=== PATIENT | female | born 1960 | race Caucasian/White ===

== ENCOUNTER 2020-09-14 19:43 | Emergency (ER) | payer MEDICAID, SELFPAY ==
[2020-09-14 19:54] VITALS: BP 174/78; PULSE 58; RESP 18; TEMP 36.9; O2SAT 99; BMI 35.2
--- NOTE | 2020-09-14 20:29 | ED_ITS ---
HPI - General Adult General Chief complaint: General Medical Stated complaint: tick bite Source: patient Mode of arrival: ambulatory Limitations: language barrier History of Present Illness HPI narrative: 60-year-old female presents with an imbedded tick to her right axilla. Patient has no other complaints at this time. Onset (ago): hour(s) Location: right and upper extremity Severity: mild Related Data Previous Rx's Medication Instructions Recorded doxycycline monohydrate 100 mg PO BID 14 Days #28 cap 09/14/20 Allergies Allergy/AdvReac Type Severity Reaction Status Date / Time No Known Allergies Allergy Verified 09/14/20 21:01 Review of Systems Review of Systems: Constitutional: No Fever, No Chills ENT/Mouth: No Ear Pain, No Hoarseness, No sore throat Eyes: No Eye Pain, No Swelling, No Redness, No Foreign Body Cardiovascular: No Chest Pain, No SOB Respiratory: No Cough, No Dyspnea Gastrointestinal: No Nausea, No Vomiting, No Diarrhea, No abdominal Pain Genitourinary: No Dysuria, No Hematuria Musculoskeletal: No joint pain, No Myalgias, No Joint Swelling Skin: Positive insect imbedded to right axilla, No Skin lacerations, No rash Neuro: No Weakness, No Numbness, No Paresthesias, No Loss of Consciousness, No Dizziness, No Headache Psych: No Anxiety/Panic, No Depression Heme/Lymph: no easy bruising, no Lymphadenopathy Endocrine: No Polyuria, No Polydipsia Yes all other systems are reviewed and are negative [facility] Past Medical History Attestation statement: The following information was validated with the patient. Source: old records reviewed Medical History HLD (hyperlipidemia) HTN (hypertension) Surgical History History of salpingo-oophorectomy Social History Social History Advance Directives: No Advance Directives Information Provided: No Physical Exam Vital Signs: Vital Signs: Last Vital Signs Temp 98.5 F 09/14/20 19:54 Pulse 58 09/14/20 19:54 Resp 18 09/14/20 19:54 BP 174/78 H 09/14/20 19:54 Pulse Ox 99 09/14/20 19:54 Body Mass Index 35.2 Appearance: Alert. Oriented X3. No acute distress. Eyes: Pupils equal, round and reactive to light. ENT: Pharynx normal. Neck: Normal inspection. Neck supple. CVS: Normal heart rate and rhythm. Pulses normal. Respiratory: No respiratory distress. Breath sounds normal. Abdomen: Soft and nontender. Skin: Positive imbedded tick parts to the right axilla with bull's-eye rash, Skin warm and dry. Normal skin color. Normal skin turgor. Extremities: No lower extremity edema. Neuro: No motor deficit. No sensory deficit. Course Course Course Narrative: 60-year-old female presents with imbedded tick to the right axilla. Will plan to extract, 1 mL of lidocaine injected to the surrounding area, 10 blade utilized to cut a 2 mm superficial incision to remove tick legs and head. Will treat with doxycycline as patient does have a bull's-eye rash. Patient tolerated procedure well. No complications or bleeding from the site. manufacturing director utilized for all correspondence, Google translate utilized for discharge instructions. Medical Decision Making MDM Narrative Medical decision making narrative: Imbedded tick Medical Records Medical records reviewed: Yes I reviewed the patient's medical records. Discharge Plan Discharge Clinical Impression: Tick bite of axillary region, Tick bite with subsequent removal of tick Patient Disposition: Home, Self-Care Instructions: Lyme Disease (ED), Tick Bite (ED) Additional Instructions: Te evaluaron por picadura de garrapata. Quitamos las porciones sobrantes de jung garrapata de la axila derecha. Tienes jung erupci?n en el holli de schmidt con sistente con la enfermedad de Lyme. Por favor tome doxiciclina 100 mg cada 12 horas maykel los pr?ximos 14 d?as. Por favor, no te expongas a [place]. Debes usar jung camisa de manga larga, pantalones de manga larga y un sombrero si sales al aire nicole bajo el leeroy o tendr?s jung erupci?n cut?marques significativa. Por favor, kevin un seguimiento con el m?dico de atenci?n primaria dentro de la pr?xima semana. Chrissy por elegir carleen departamento de emergencias para mensah evaluaci?n. Por favor, kevin un seguimiento con el m?dico de atenci?n primaria seg?n sea necesario. Regrese al servicio de emergencias para cualquier s?ntoma nuevo, preocupante o que empeore. You were evaluated for tick bite. We removed the leftover portions of a tick from your right armpit. You do have a bull's-eye rash consistent with Lyme disease. Please take doxycycline 100 mg every 12 hours for the next 14 days. Please do not expose yourself to [place]. You must wear a long sleeve shirt, long-sleeved pants, and a hat if you go outside in the sunshine or You will have a significant skin rash. Please follow-up with primary care physician within the next week. Thank you for choosing this emergency department for evaluation. Please follow-up with primary care physician as needed. Return to the emergency department for any new, concerning, or worsening symptoms. Prescriptions: New doxycycline monohydrate 100 mg capsule 100 mg PO BID 14 Days Qty: 28 RF: 0 Interventions: ED Discharge Assessment Last Done: 09/14/20 21:51 Discharge Date/Time: 09/14/20 21:57
[2020-09-14] MEDS: Lidocaine HCl 2 % MPF 5 ML VIAL SUBCUT (21:19)
== END 2020-09-14 21:57 | disposition home or self-care (01) ==
PROVIDERS: Emergency Provider Internal Medicine
DX: S40.861A Insect bite (nonvenomous) of right upper arm, initial encounter (principal); W57.XXXA Bitten or stung by nonvenomous insect and other nonvenomous arthropods, initial encounter; M79.5 Residual foreign body in soft tissue; Y93.9 Activity, unspecified; Y92.017 Garden or yard in single-family (private) house as the place of occurrence of the external cause; Y99.9 Unspecified external cause status
CPT/HCPCS: 10120; 99283; 99284

== ENCOUNTER 2021-05-06 12:23 | Outpatient (REF) | payer MEDICAID, SELFPAY | END 2021-05-06 12:24 | disposition home or self-care (01) | LOC: HO.LAB 12:23 | PROVIDERS: Visit Provider Internal Medicine | DX: Z20.822 Contact with and (suspected) exposure to COVID-19 (principal) | CPT/HCPCS: C9803; U0003; U0005 ==

== ENCOUNTER 2021-08-14 17:45 | Emergency (ER) | payer MEDICAID, SELFPAY ==
--- NOTE | ~2021-08-14 | CT_ITS ---
EXAMINATION: CT HEAD WITHOUT CONTRAST CLINICAL INFORMATION: Head injury. COMPARISON: None. TECHNIQUE: Contiguous axial imaging was performed from the skull base to vertex without intravenous administration of contrast. Coronal and sagittal reformatted images are performed at the CT scanner. [This CT examination was performed using dose optimization techniques as appropriate, variously including the following: *Automated exposure control *Adjustment of mA and/or kV according to patient size (this includes techniques or standardized protocols for targeted exams where dose is matched to indication/reason for exam; i.e. extremities or head) *Use of iterative reconstruction technique] DLP: 752 mGy-cm. FINDINGS: There is no evidence of acute intracranial hemorrhage or territorial infarction. No abnormal mass-effect or midline shift is seen. [place] to white matter differentiation is well preserved. No extra-axial fluid collections are identified. The ventricles are normal in size. There is no abnormal attenuation within the brain parenchyma. There is no osseous abnormality. The mastoid air cells and visualized portions of the paranasal sinuses are well-aerated. CT/CT head/brain wo con IMPRESSION: No acute intracranial pathology.
--- NOTE | ~2021-08-14 | XR_ITS ---
EXAMINATION: XR RIBS, LEFT CLINICAL INFORMATION: Fall. Bruising. Pain. COMPARISON: None TECHNIQUE: Frontal view of chest. 3 views of the left ribs were obtained. FINDINGS: Lungs are clear. No consolidation, pneumothorax, or pleural effusion. The cardiomediastinal silhouette and pulmonary vasculature are normal. Osseous structures are unremarkable. Ribs are intact. No fractures are identified. XR/XR ribs LT min 3V w CXR1V IMPRESSION: Unremarkable examination.
[2021-08-14 18:14] VITALS: BP 150/61; PULSE 58; RESP 18; TEMP 36.6; O2SAT 98; BMI 30.9
--- NOTE | 2021-08-14 19:07 | ED_ITS ---
HPI - Fall General Chief Complaint: Wound/Laceration Stated Complaint: fall/laceration Time Seen by Provider: 08/14/21 19:01 Source: patient Mode of arrival: ambulatory Limitations: language barrier (Iraqi-speaking, medical administrative technician utilized) History of Present Illness HPI Narrative: Patient is a 61-year-old female with a past medical history of hypertension, hyperlipidemia, hypothyroidism, presenting to the emergency department after a mechanical fall. She reports that while she was walking down stairs from her house to outdoor she is uncertain what happened but her legs just gave out, and she fell forward striking her head on to a kira metal object and sustained a laceration. She denies loss of consciousness, this was an unwitnessed fall, she was able to get up and ambulate on her own afterwards, denies anticoagulant usage. Denies neck pain. Denies precipitating dizziness or lightheadedness. D enies vision changes. Denies headache. Denies numbness or tingling of the extremities. Denies bladder bowel dysfunction. She sustained an abrasion to her left knee which is mildly uncomfortable but she has been able to walk and bear weight on the leg without any difficulty and has full range of motion. Denies chest pain, palpitations, shortness of breath, difficulty breathing, nausea, vomiting, abdominal pain. Related Data Previous Rx's Medication Instructions Recorded doxycycline monohydrate 100 mg 100 mg PO BID 14 Days #28 cap 09/14/20 capsule cephalexin 500 mg capsule 500 mg PO QID 5 Days #20 cap 08/15/21 Allergies Allergy/AdvReac Type Severity Reaction Status Date / Time No Known Allergies Allergy Verified 09/14/20 21:01 Review of Systems Review of Systems: Constitutional: No weight loss, fever, chills, weakness or fatigue. HEENT: No vision changes. No hearing loss. No sore throat. Skin: Left knee abrasion, laceration to forehead. No rash or itching. Cardiovascular: No chest pain, chest pressure or chest discomfort. No palpitations or pedal edema. Respiratory: No shortness of breath, cough or sputum production. Gastrointestinal: No anorexia, nausea, vomiting or diarrhea. No abdominal pain or blood in stool. Genitourinary: No burning micturition. No urinary frequency or incontinence. Neurologic: No headache, dizziness, syncope, unilateral weakness, ataxia, numbness or tingling in the extremities. No change in bowel or bladder control. Musculoskeletal: No muscle pain, back pain, joint pain or stiffness. Hematologic: No bleeding or bruising. Lymphatics: No enlarged lymph nodes. Psychiatric:No depression or anxiety. Endocrine: No polyuria or polydipsia. [facility] Past Medical History Attestation statement: The following information was validated with the patient. Source: old records reviewed Medical History HLD (hyperlipidemia) HTN (hypertension) Surgical History History of salpingo-oophorectomy Social History Social History Advance Directives: No Patient : No Physical Exam Vital Signs: Vital Signs: Last Vital Signs Temp 98.2 F 08/14/21 23:23 Pulse 74 08/14/21 23:23 Resp 16 08/14/21 23:23 BP 140/64 H 08/14/21 23:23 Pulse Ox 98 08/14/21 23:23 BMI result Body Mass Index 30.9 Vital signs have been reviewed and appeared to be correct. Blood pressure elevated 150/61.? Heart rate normal.? Respiration rate normal. Temperature normal.? Oxygen saturation normal. Appearance: Alert.?Oriented to person, place and time. No acute distress.?Normal affect. Eyes: Pupils equal, round and reactive to light.? ENT: Pharynx normal.?? Neck: Normal inspection.? Neck supple.??No palpable midline cervical tenderness, step-off, deformity. CVS: Heart sounds normal. Normal heart rate and rhythm.? Pulses normal.?? Respiratory: No respiratory distress.? Lung sounds clear to auscultation bilaterally?? Abdomen: Soft and non-tender. Normoactive bowel sounds. No pulsatile mass.?? Skin: Abrasion to left knee, 2cm linear laceration to forehead, bruising with abrasion and tenderness to anterior chest, no palpable deformity Skin warm and dry.? Normal skin color.? Normal skin turgor.?? Extremities: No lower extremity edema.? No calf ttp. Full AROM to left knee, palpable 2+ DP/PT pulse. Neuro: Moves all extremities spontaneously. Sensation intact bilaterally. CN II- XII intact. No focal neuro deficits. Ambulates with normal steady gait. Course Course Course Narrative: Patient is a 61-year-old female who is being evaluated after a fall. The exact cause of her fall is unknown, and she did strike her head however, will obtain a CT of the head to evaluate for ICH/SAH/infarct. Basic labs including CBC and BMP to be obtained in addition to troponin and EKG to exclude ischemia/ACS. Plan to update tetanus, laceration to forehead will require suturing. Tylenol for pain. Abrasion to left knee without significant drainage, no active bleeding, no surrounding erythema or swelling, no effusion is present, no obvious deformity or pain, therefore will defer x-ray imaging at this time. Left anterior chest with bruising and abrasions, tenderness with palpation, will obtain x-ray to exclude rib fracture. Disposition pending results Reevaluation(s) Reevaluation #1: CBC is overall unremarkable, BMP is normal. Troponin 4.4, EKG reveals sinus bradycardia, EKG reveals flat T-waves in I and inversion in aVL, no prior EKGs available for comparison, will obtain repeat delta troponin. XR rib and chest are normal, no acute fracture pneumothorax. Time: 21:32 Reevaluation #2: Head CT reveals no acute intracranial pathology. Laceration repair with sutures. Discussed indication for improvement hemostasis of wound and healing time. Patient acknowledged understanding. Wound with sterile saline irrigation draped in usual fashion with the use of Betadine. Closure with 3 simple intermittent sutures 5-0 nylon. Patient tolerated well, no complications. Discussed reasons to return including fever or chills, erythema, swelling, pain, purulence or odor from the wound. Advised to return for suture removal in 7 days. Time: 23:07 Reevaluation #3: Repeat delta troponin <3.5, HEART score 2, no active chest pain and palpitations, shortness breath, difficulty breathing, unlikely to be ACS. Patient reports that she had an EKG after her hysterectomy about 5-6 years ago which she said was ?abnormal? but is unaware specific details. She is well appearing, has remained alert and oriented, ambulatory with steady gait. Patient to be discharged home, discussed all findings, questions answered, patient agrees with plan of care. Time: 00:18 Procedures Laceration Laceration 1: Site: face Size (cm): 3 Description: linear Depth: simple, single layer Local Anesthetic: lidocaine 1% Amount of anesthesia used (mL): 5 Pre-repair: irrigated extensively Skin layer closed with: nylon Size (cm): 5-0 Number of sutures: 3 Technique: simple, interrupted MDM - Fall Medical Records Attestation: I reviewed the patient's medical records. Lab Data Attestation: I reviewed the patient's lab results. Result diagrams: 08/14/21 19:53 08/14/21 19:53 Labs: Lab Results 08/14/21 08/14/21 08/14/21 Range/Units 19:53 19:53 19:53 WBC 7.2 (4.8-10.8) X10*3/uL RBC 4.16 L (4.20-5.50) X10*6/uL Hgb 12.3 (12.0-16.0) g/dl Hct 37.4 (37.0-47.0) % MCV 89.9 (80.0-98.0) fL MCH 29.6 (27.0-33.0) pg MCHC 32.9 (31.0-35.0) g/dl RDW 13.2 (11.0-16.0) % Plt Count 179 (160-400) X10*3/uL MPV 10.8 (9.4-12.3) fL Immature Gran % (Auto) 0.3 (0.0-0.4) % Neut % (Auto) 63.9 (45-73) % Lymph % (Auto) 25.6 (20-40) % [place] % (Auto) 7.0 (2-11) % Eos % (Auto) 2.5 (0-4) % Baso % (Auto) 0.7 (0-2) % Lymph # (Auto) 1.8 (1.2-4.9) X10*3/uL [place] # (Auto) 0.5 (0.1-1.2) X10*3/uL Eos # (Auto) 0.2 (0.0-0.4) X10*3/uL Baso # (Auto) 0.1 (0.0-0.2) X10*3/uL Abs Immat Gran (auto) 0.02 (0.00-0.03) X10*3/uL Absolute Neuts (auto) 4.6 (2.0-8.3) x10*3/uL Absolute Nucleated RBC 0.000 (0.0-0.012) X10*3/uL Nucleated RBC % (auto) 0.0 (0.0-0.2) /100WBC Sodium 140 (135-145) mmol/L Potassium 4.5 (3.3-5.1) mmol/L Chloride 106 (96-108) mmol/L Carbon Dioxide 26 (22-29) mmol/L Anion Gap 13 (12-20) BUN 13 (9-16) mg/dL Creatinine 0.73 (0.5-1.4) mg/dL Estim Creat Clear Calc 84.7 Estimated GFR > 60 Random Glucose 114 (60-115) mg/dL Calcium 9.8 (8.4-10.2) mg/dL Magnesium 2.4 (1.6-2.6) mg/dL Troponin I High Sens 4.4 (<3.5-17.0) ng/L 08/14/21 Range/Units 23:29 WBC (4.8-10.8) X10*3/uL RBC (4.20-5.50) X10*6/uL Hgb (12.0-16.0) g/dl Hct (37.0-47.0) % MCV (80.0-98.0) fL MCH (27.0-33.0) pg MCHC (31.0-35.0) g/dl RDW (11.0-16.0) % Plt Count (160-400) X10*3/uL MPV (9.4-12.3) fL Immature Gran % (Auto) (0.0-0.4) % Neut % (Auto) (45-73) % Lymph % (Auto) (20-40) % [place] % (Auto) (2-11) % Eos % (Auto) (0-4) % Baso % (Auto) (0-2) % Lymph # (Auto) (1.2-4.9) X10*3/uL [place] # (Auto) (0.1-1.2) X10*3/uL Eos # (Auto) (0.0-0.4) X10*3/uL Baso # (Auto) (0.0-0.2) X10*3/uL Abs Immat Gran (auto) (0.00-0.03) X10*3/uL Absolute Neuts (auto) (2.0-8.3) x10*3/uL Absolute Nucleated RBC (0.0-0.012) X10*3/uL Nucleated RBC % (auto) (0.0-0.2) /100WBC Sodium (135-145) mmol/L Potassium (3.3-5.1) mmol/L Chloride (96-108) mmol/L Carbon Dioxide (22-29) mmol/L Anion Gap (12-20) BUN (9-16) mg/dL Creatinine (0.5-1.4) mg/dL Estim Creat Clear Calc Estimated GFR Random Glucose (60-115) mg/dL Calcium (8.4-10.2) mg/dL Magnesium (1.6-2.6) mg/dL Troponin I High Sens < 3.5 (<3.5-17.0) ng/L Imaging Data Chest x-ray: Radiologist's impression: XR/XR ribs LT min 3V w CXR1V IMPRESSION: Unremarkable examination. ECG Data Attestation: I personally reviewed and interpreted this ECG as follows: ECG interpretation date: 08/14/21 ECG interpretation time: 21:33 Prior ECG tracings: not available for review Interpretation: Rate: 58 Rhythm:? Sinus bradycardia [place]:? Normal Normal P waves.? Normal XENIA.?? Normal QRS complex.?? ST T wave :??No ST elevation, no ST depression, T-wave flat in lead I, inversion in aVL qTC: 445 prior studies:?none available The study has been interpreted contemporaneously by me. Discharge Plan Discharge Clinical Impression: Laceration, Fall, Abnormal ECG Patient Disposition: Home, Self-Care Instructions: Laceration (ED) Additional Instructions: Please take complete course of antibiotic, Keflex, for 5 days. Your sutures will need to be removed in 7 days, you may contact your primary care provider to schedule a follow-up appointment or return to the emergency department for removal. Please return to the emergency department for re-evaluation if you develop fevers, chills, redness, swelling, drainage, or any new or worsening s ymptoms or concerns. As we discussed, there were some abnormal EKG findings, you should discuss this with your primary care provider, we repeated your blood work while you were in the emergency department in found these changes not to be related to a current heart attack. Prescriptions: New cephalexin 500 mg capsule 500 mg PO QID 5 Days Qty: 20 0RF No Action doxycycline monohydrate 100 mg capsule 100 mg PO BID 14 Days Qty: 28 0RF Interventions: ED Discharge Assessment Last Done: 08/15/21 01:40 Discharge Date/Time: 08/15/21 01:43 Print Language: Iraqi
[2021-08-14 19:11] VITALS: BP 168/79; PULSE 59; RESP 16; TEMP 36.8; O2SAT 98
--- NOTE | 2021-08-14 19:28 | ECG_ITS ---
Test Reason : FALL Blood Pressure : / mmHG Vent. Rate : 058 BPM Atrial Rate : 058 BPM P-R Int : 160 ms QRS Dur : 086 ms QT Int : 454 ms P-R-T Axes : 015 024 072 degrees QTc Int : 445 ms Sinus bradycardia Nonspecific ST and T wave abnormality Abnormal ECG No previous ECGs available Referred By: Connie Perez Electronically Signed By:HEATHER CASTANEDA
[2021-08-14] MEDS: Diphth,Pertus(ACell),Tet Adult 0.5 ML SYRINGE IM (19:43)
[2021-08-14] MEDS: Lidocaine 4 % Cream KIT 1 APPL TOPICAL (19:43)
[2021-08-14] MEDS: Bacitracin Oint 0.9 GM PACKET 1 APPL TOPICAL (19:44)
[2021-08-14] MEDS: Acetaminophen 325 MG TABLET 975 MG PO (19:44)
[2021-08-14] MEDS: Lidocaine HCl 1 % 20 ML VIAL SUBCUT (19:44)
[2021-08-14 19:59] LABS: MANUAL DIFF FLAG NO
[2021-08-14 20:00] LABS: Basophils Absolute Auto 0.1 X10*3/uL (0.0-0.2); Basophils Percent Auto 0.7 % (0-2); Eosinophils Absolute Auto 0.2 X10*3/uL (0.0-0.4); Eosinophils Percent Auto 2.5 % (0-4); Hematocrit 37.4 % (37.0-47.0); Hemoglobin 12.3 g/dl (12.0-16.0); Imm Gran Abs Auto 0.02 X10*3/uL (0.00-0.03); Imm Gran Pct Auto 0.3 % (0.0-0.4); Lymphocytes Absolute Auto 1.8 X10*3/uL (1.2-4.9); Lymphocytes Percent Auto 25.6 % (20-40); Mean Corpuscular HGB Conc 32.9 g/dl (31.0-35.0); Mean Corpuscular Hemoglobin 29.6 pg (27.0-33.0); Mean Corpuscular Volume 89.9 fL (80.0-98.0); Mean Platelet Volume 10.8 fL (9.4-12.3); Monocytes Absolute Auto 0.5 X10*3/uL (0.1-1.2); Neutrophils Absolute Auto 4.6 x10*3/uL (2.0-8.3); Neutrophils Percent Auto 63.9 % (45-73); Platelet Count 179 X10*3/uL (160-400); Red Blood Count 4.16 X10*6/uL (4.20-5.50); Red Cell Distribution Width 13.2 % (11.0-16.0); White Blood Count 7.2 X10*3/uL (4.8-10.8)
[2021-08-14 20:16] LABS: Anion Gap 13 (12-20); Blood Urea Nitrogen 13 mg/dL (9-16); Calcium 9.8 mg/dL (8.4-10.2); Carbon Dioxide 26 mmol/L (22-29); Chloride 106 mmol/L (96-108); Creatinine Clr Calc Pharmacy 84.7; Estimated Glomerular Filt Rate > 60; Glucose Random 114 mg/dL (60-115); Magnesium 2.4 mg/dL (1.6-2.6); Potassium 4.5 mmol/L (3.3-5.1); Sodium 140 mmol/L (135-145)
[2021-08-14 20:19] LABS: Troponin-I High Sensitivity 4.4 ng/L (<3.5-17.0)
[2021-08-14 23:23] VITALS: BP 140/64; PULSE 74; RESP 16; TEMP 36.8; O2SAT 98
[2021-08-15] LABS: Troponin-I High Sensitivity < 3.5 ng/L (<3.5-17.0)
== END 2021-08-15 01:43 | disposition home or self-care (01) ==
PROVIDERS: Nurse Practitioner Family; Emergency Provider Emergency Medicine
DX: S01.81XA Laceration without foreign body of other part of head, initial encounter (principal); S80.212A Abrasion, left knee, initial encounter; S20.319A Abrasion of unspecified front wall of thorax, initial encounter; S20.219A Contusion of unspecified front wall of thorax, initial encounter; W10.8XXA Fall (on) (from) other stairs and steps, initial encounter; R00.1 Bradycardia, unspecified; Y93.89 Activity, other specified; Y92.018 Other place in single-family (private) house as the place of occurrence of the external cause; Y99.9 Unspecified external cause status
CPT/HCPCS: 12013; 36415; 70450; 71101; 80048; 83735; 84484; 85025; 90471; 90715; 93005; 99284

== ENCOUNTER 2021-08-20 18:21 | Emergency (ER) | payer MEDICAID, SELFPAY ==
[2021-08-20 18:45] VITALS: BP 153/71; PULSE 54; RESP 18; TEMP 37.1; O2SAT 99; BMI 28.8
--- NOTE | 2021-08-20 18:50 | ED_ITS ---
HPI - General Adult General Chief complaint: General Medical Stated complaint: Suture removal Time Seen by Provider: 08/20/21 18:22 Source: patient Mode of arrival: ambulatory Limitations: no limitations History of Present Illness HPI narrative: 61-year-old female presents for suture removal from forehead. Onset (ago): week(s) (1) Location: face Radiation: non-radiation Severity: mild Relieving factors: none Exacerbating factors: none Associated symptoms: denies other symptoms Related Data Previous Rx's Medication Instructions Recorded doxycycline monohydrate 100 mg 100 mg PO BID 14 Days #28 cap 09/14/20 capsule cephalexin 500 mg capsule 500 mg PO QID 5 Days #20 cap 08/15/21 Allergies Allergy/AdvReac Type Severity Reaction Status Date / Time No Known Allergies Allergy Verified 08/20/21 18:44 Review of Systems Review of Systems: Constitutional: No Fever, No Chills ENT/Mouth: No Ear Pain, No Hoarseness, No sore throat Eyes: No Eye Pain, No Swelling, No Redness, No Foreign Body Cardiovascular: No Chest Pain, No SOB Respiratory: No Cough, No Dyspnea Gastrointestinal: No Nausea, No Vomiting, No Diarrhea, No abdominal Pain Genitourinary: No Dysuria, No Hematuria Musculoskeletal: No joint pain, No Myalgias, No Joint Swelling Skin: Positive for head laceration suture removal, No Skin lacerations, No rash Neuro: No Weakness, No Numbness, No Paresthesias, No Loss of Consciousness, No Dizziness, No Headache Psych: No Anxiety/Panic, No Depression Heme/Lymph: no easy bruising, no Lymphadenopathy Endocrine: No Polyuria, No Polydipsia Yes all other systems are reviewed and are negative [facility] Past Medical History Attestation statement: The following information was validated with the patient. Source: old records reviewed Medical History HLD (hyperlipidemia) HTN (hypertension) Surgical History History of salpingo-oophorectomy Social History Social History Advance Directives: No Patient : No Physical Exam ED Vital Signs: Vital Signs - 24 hr 08/20/21 18:45 Temperature 98.8 F Pulse Rate 54 Respiratory Rate 18 Blood Pressure 153/71 H Pulse Oximetry 99 BMI result Body Mass Index 28.8 Appearance: Alert. Oriented X3. No acute distress. Eyes: Pupils equal, round and reactive to light. ENT: Pharynx normal. Neck: Normal inspection. Neck supple. CVS: Normal heart rate and rhythm. Pulses normal. Respiratory: No respiratory distress. Breath sounds normal. Abdomen: Soft and nontender. Skin: Skin warm and dry. Normal skin color. Normal skin turgor. Three sutures removed from well approximated well healing noninfected wound to the mid forehead. Extremities: No lower extremity edema. Gait well-balanced well coordinated. Neuro: No motor deficit. No sensory deficit. Cranial nerves 2-12 intact. Course Course Course Narrative: 61-year-old female presents for suture removal to the mid forehead. Patient does not complain of any symptoms, is afebrile, vital signs are stable and within normal limits. Gait is well balanced and well coordinated. Three sutures removed roll well-approximated, well-healed, noninfected wound. Patient tolerated procedure well. Patient verbalized understanding of and agrees to plan of care to discharge home. Verbalized understanding of signs and symptoms indicating need for emergent intervention Medical Decision Making MDM Narrative Medical decision making narrative: Suture removal Medical Records Medical records reviewed: Yes I reviewed the patient's medical records. Discharge Plan Discharge Clinical Impression: Visit for suture removal Patient Disposition: Home, Self-Care Instructions: Stitches Removal (ED) Additional Instructions: We removed 3 sutures from your forehead. Your wound is healing very well and is not infected at this time. Please consider using Mederma, a topical ointment to help reduce scarring. This medication can be purchased [id number]. Thank you for choosing this emergency department for evaluation. Please follow-up with primary care physician as needed. Return to the emergency department for any new, concerning, or worsening symptoms. Prescriptions: No Action doxycycline monohydrate 100 mg capsule 100 mg PO BID 14 Days Qty: 28 0RF cephalexin 500 mg capsule 500 mg PO QID 5 Days Qty: 20 0RF Interventions: ED Discharge Assessment Last Done: 08/20/21 19:05 Discharge Date/Time: 08/20/21 19:06
== END 2021-08-20 19:06 | disposition home or self-care (01) ==
PROVIDERS: Emergency Provider Emergency Medicine; PCP Internal Medicine
DX: Z48.02 Encounter for removal of sutures (principal); S01.81XD Laceration without foreign body of other part of head, subsequent encounter; X58.XXXD Exposure to other specified factors, subsequent encounter
CPT/HCPCS: 99283